=== PATIENT | female | born 1965 | race Caucasian/White ===

== ENCOUNTER → 2016-05-02 | Outpatient (CLI) | payer BC ==
[~2016-05-02] MED LIST: 'PARAFON FORTE500 M1 PO; ALBUTEROL0.09 MG/A2 IH; ALEVE220 MG PO; B12100 MCG PO; CLARITIN10 MG PO; DELTASONE20 MG PO; HYDROCODONE BIT1 T11 PO; MUCINEX600 MG PO; NAPROSYN500 MG PO; PRINIVIL2.5 MG PO; SEPTRA DS 800 M1 TAB PO; ZITHROMAX250 MG PO; ZOLOFT25 MG PO
== END | disposition home or self-care (01) ==
LOC: RAD 13:30
DX: M19.011 Primary osteoarthritis, right shoulder (principal); M25.511 Pain in right shoulder

== ENCOUNTER → 2016-08-05 | Outpatient (CLI) | payer BC | END | disposition home or self-care (01) | LOC: CT 16:00 | DX: S16.1XXA Strain of muscle, fascia and tendon at neck level, initial encounter (principal); M51.36 Other intervertebral disc degeneration, lumbar region; M48.06 Spinal stenosis, lumbar region; M25.78 Osteophyte, vertebrae; M19.90 Unspecified osteoarthritis, unspecified site; Z90.710 Acquired absence of both cervix and uterus; Z96.653 Presence of artificial knee joint, bilateral; X58.XXXA Exposure to other specified factors, initial encounter; Y93.89 Activity, other specified; Y92.89 Other specified places as the place of occurrence of the external cause; Y99.8 Other external cause status ==

== ENCOUNTER 2016-08-13 10:26 | Emergency (ER) | payer BC ==
[~2016-08-13] VITALS: Ht 154.9 cm; Wt 136.1 kg
[2016-08-13] MEDS ORDERED: CYCLOBENZAPRINE5 M3 PO (10:37)
[2016-08-13] MEDS ORDERED: MEDROL DOSEPAK4 MG PO (11:22)
[2016-08-13] MEDS ORDERED: NORCO 5-325 TA1 EACH PO (11:22)
[2016-08-13] MEDS ORDERED: CYCLOBENZAPRINE10 MG PO (12:07)
== END 2016-08-13 12:00 | disposition home or self-care (01) ==
LOC: ED 10:26
DX: M54.30 Sciatica, unspecified side (principal); F17.200 Nicotine dependence, unspecified, uncomplicated; Z88.8 Allergy status to other drugs, medicaments and biological substances; Z79.899 Other long term (current) drug therapy

== ENCOUNTER → 2016-11-18 | Outpatient (CLI) | payer BC ==
[~2016-11-18] MED LIST changes: +CYCLOBENZAPRINE10 MG PO; +CYCLOBENZAPRINE5 M3 PO; +MEDROL DOSEPAK4 MG PO; +NORCO 5-325 TA1 EACH PO
== END | disposition home or self-care (01) ==
LOC: MRI 14:00
DX: M48.06 Spinal stenosis, lumbar region (principal); M47.896 Other spondylosis, lumbar region; M51.26 Other intervertebral disc displacement, lumbar region; M50.222 Other cervical disc displacement at C5-C6 level; M50.221 Other cervical disc displacement at C4-C5 level; M48.02 Spinal stenosis, cervical region; M53.82 Other specified dorsopathies, cervical region; M47.892 Other spondylosis, cervical region

== ENCOUNTER → 2016-11-30 | Outpatient (CLI) | payer BC ==
[2016-11-30 10:33] LABS: EST GLOM FILT AFRICAN AMERICAN > 60 ml/min
== END | disposition home or self-care (01) ==
LOC: CT 10:00 → LAB 10:06
PROVIDERS: Internal Medicine
DX: M48.06 Spinal stenosis, lumbar region (principal); M48.02 Spinal stenosis, cervical region; M12.9 Arthropathy, unspecified; M50.30 Other cervical disc degeneration, unspecified cervical region

== ENCOUNTER 2017-04-30 21:49 | Emergency (ER) | payer BC ==
[~2017-04-30] VITALS: Ht 157.4 cm; Wt 127.0 kg
== END 2017-05-01 00:23 | disposition home or self-care (01) ==
LOC: ED 21:49
DX: R51 Headache (principal); F17.200 Nicotine dependence, unspecified, uncomplicated; Z90.710 Acquired absence of both cervix and uterus; Z96.653 Presence of artificial knee joint, bilateral; Z79.899 Other long term (current) drug therapy; Z88.8 Allergy status to other drugs, medicaments and biological substances

== ENCOUNTER → 2021-10-01 | Outpatient (CLI) | payer BC ==
[~2021-10-01] MED LIST changes: +CEPHALEXIN500 M1 PO; +CIPRO500 MG PO
== END | disposition home or self-care (01) ==
LOC: CARD 12:23
PROVIDERS: ATTEND Physician Assistant
DX: I08.3 Combined rheumatic disorders of mitral, aortic and tricuspid valves (principal)

== ENCOUNTER 2022-03-16 15:07 | Inpatient (IN) | payer BC ==
[~2022-03-16] VITALS: Wt 136.1 kg
[2022-03-16 11:45] VITALS: BP 110/64; BP 124/63
[2022-03-16 15:19] VITALS: BP 170/80
[2022-03-16] MEDS ORDERED: CELECOXIB200 M1 PO (15:43)
[2022-03-16] MEDS ORDERED: CONTRAVE ER 8-1 EACH PO (15:43)
[2022-03-16] MEDS ORDERED: LOSARTAN-HCTZ1 EACH PO (15:44)
[2022-03-16] MEDS ORDERED: MELOXICAM15 MG PO (15:44)
[2022-03-16 16:43] LABS: BILIRUBIN Negative (Negative); BLOOD Negative (Negative); CLARITY Clear (Clear); COLOR Yellow (Yellow); GLUCOSE Negative (Negative); KETONE Negative (Negative); LEUKO ESTERASE Negative (Negative); NITRITE Negative (Negative); SPECIFIC GRAVITY 1.015 (1.001-1.030)
[2022-03-16 17:17] LABS: BASO # 0.1 10*3/uL (0.0-0.1); BASO % 0.8 % (0.0-1.0); EOS % 0.6 % (1.0-4.0); HEMATOCRIT 43.6 % (37.0-47.0); LYMPH # 0.8 10*3/uL (1.3-4.4); LYMPH % 10.7 % (27.0-41.0); MEAN CELL VOLUME 94.8 fl (81.0-99.0); MEAN CORPUSCULAR HGB 30.2 pg (27.0-31.0); MEAN CORPUSCULAR HGB CONC 31.9 g/dl (33.0-37.0); MEAN PLATELET VOLUME 10.7 fl (9.6-12.3); MONO # 0.7 10*3/uL (0.1-1.0); MONO % 10.2 % (3.0-9.0); NEUT # 5.5 10*3/uL (2.3-7.9); NEUT % 77.4 % (47.0-73.0); PLATELET COUNT AUTOMATED 220 10*3/uL (130-400); RED CELL DISTRI WIDTH 15.5 % (0-14.5); WHITE BLOOD COUNT 7.1 10*3/uL (4.8-10.8)
[2022-03-16 17:24] VITALS: BP 144/80
[2022-03-16 17:34] LABS: ALKALINE PHOSPHATASE 96 U/L (46-116); BUN 5 mg/dl (9-23); CHLORIDE 98 mmol/L (98-107); CREATININE 0.75 mg/dL (0.55-1.02); LIPASE 22 U/L (12-53); POTASSIUM 3.3 mmol/L (3.4-5.1); SGPT/ALT 25 U/L (10-49); SODIUM 134 mmol/L (136-145); TOTAL PROTEIN 6.7 gm/dL (6.0-8.0)
[2022-03-16 17:36] LABS: ACT PARTIAL THROMBO TIME 32.1 SECONDS (20.0-32.1); INTERNATIONAL NORM RATIO 1.1 (2.0-3.5)
[2022-03-16 23:02] VITALS: BP 120/66
[2022-03-17] VITALS: BP 114/51
[2022-03-17 00:08] VITALS: BP 104/70
[2022-03-17 04:54] VITALS: BP 110/64
[2022-03-17 05:36] LABS: ALKALINE PHOSPHATASE 96 U/L (46-116); BUN 9 mg/dl (9-23); CHLORIDE 100 mmol/L (98-107); CHOLESTEROL 142 mg/dL (<200); CREATININE 0.79 mg/dL (0.55-1.02); LDL CHOLESTEROL 105 mg/dL (9-159); POTASSIUM 3.9 mmol/L (3.4-5.1); SGPT/ALT 27 U/L (10-49); SODIUM 136 mmol/L (136-145); TOTAL PROTEIN 6.9 gm/dL (6.0-8.0); TRIGLYCERIDES 52 mg/dl (<150)
[2022-03-17 05:37] LABS: FREE T4 1.06 ng/dl (0.89-1.76); THYROID STIM HORMONE (HS) 0.589 uIU/ml (0.550-4.780)
[2022-03-17 06:07] LABS: BASO % 0.3 % (0.0-1.0); HEMATOCRIT 45.1 % (37.0-47.0); LYMPH # 0.7 10*3/uL (1.3-4.4); MEAN CELL VOLUME 96.6 fl (81.0-99.0); MEAN CORPUSCULAR HGB 30.6 pg (27.0-31.0); MEAN CORPUSCULAR HGB CONC 31.7 g/dl (33.0-37.0); MEAN PLATELET VOLUME 11.1 fl (9.6-12.3); MONO # 0.4 10*3/uL (0.1-1.0); MONO % 5.1 % (3.0-9.0); NEUT # 7.4 10*3/uL (2.3-7.9); NEUT % 86.1 % (47.0-73.0); PLATELET COUNT AUTOMATED 255 10*3/uL (130-400); RED BLOOD COUNT 4.67 10*6/uL (4.10-5.10); RED CELL DISTRI WIDTH 15.5 % (0-14.5); WHITE BLOOD COUNT 8.6 10*3/uL (4.8-10.8)
[2022-03-17 12:00] VITALS: BP 110/64
[2022-03-17 16:00] VITALS: BP 111/72
[2022-03-17 20:00] VITALS: BP 106/59
[2022-03-18] VITALS: BP 139/61
[2022-03-18 06:36] LABS: BASO % 0.1 % (0.0-1.0); HEMATOCRIT 44.2 % (37.0-47.0); LYMPH # 1.7 10*3/uL (1.3-4.4); LYMPH % 23.7 % (27.0-41.0); MEAN CELL VOLUME 97.8 fl (81.0-99.0); MEAN CORPUSCULAR HGB 30.3 pg (27.0-31.0); MEAN PLATELET VOLUME 11.1 fl (9.6-12.3); MONO # 0.8 10*3/uL (0.1-1.0); MONO % 10.8 % (3.0-9.0); NEUT # 4.8 10*3/uL (2.3-7.9); NEUT % 65.1 % (47.0-73.0); PLATELET COUNT AUTOMATED 224 10*3/uL (130-400); RED BLOOD COUNT 4.52 10*6/uL (4.10-5.10); RED CELL DISTRI WIDTH 15.5 % (0-14.5); WHITE BLOOD COUNT 7.3 10*3/uL (4.8-10.8)
[2022-03-18 06:41] LABS: ALKALINE PHOSPHATASE 81 U/L (46-116); BUN 16 mg/dl (9-23); CHLORIDE 101 mmol/L (98-107); POTASSIUM 3.7 mmol/L (3.4-5.1); SGPT/ALT 27 U/L (10-49); SODIUM 140 mmol/L (136-145); TOTAL PROTEIN 6.2 gm/dL (6.0-8.0)
[2022-03-18 08:00] VITALS: BP 132/79
[2022-03-18 12:00] VITALS: BP 110/59
[2022-03-18 16:00] VITALS: BP 116/54
[2022-03-18 20:00] VITALS: BP 112/58
[2022-03-19] VITALS: BP 114/64
[2022-03-19 08:00] VITALS: BP 114/60
[2022-03-19 12:00] VITALS: BP 133/52
[2022-03-19] MEDS ORDERED: DEXAMETHASONE6 MG PO (14:15)
[2022-03-19] MEDS ORDERED: DOXYCYCLINE HY100 M3 PO (14:15)
[2022-03-19] MEDS ORDERED: NATURE'S BLEND F1 MG PO (14:15)
== END 2022-03-19 16:27 | disposition home or self-care (01) | DRG 177 ==
LOC: ED 15:07 → 4E 19:00 → EDHOLD 19:00 → 4E 03-17 11:06
PROVIDERS: Family Medicine; Internal Medicine; ADMIT Emergency Medicine; ATTEND Emergency Medicine
PROC: XW033E5 Introduction of Remdesivir Anti-infective into Peripheral Vein, Percutaneous Approach, New Technology Group 5 (ICD-10-PCS; principal; 2022-03-16)
DX: U07.1 COVID-19 (principal); J12.82 Pneumonia due to coronavirus disease 2019; J96.01 Acute respiratory failure with hypoxia; E87.1 Hypo-osmolality and hyponatremia; Z68.43 Body mass index [BMI] 50.0-59.9, adult; I35.0 Nonrheumatic aortic (valve) stenosis; E53.8 Deficiency of other specified B group vitamins; Z96.653 Presence of artificial knee joint, bilateral; E66.01 Morbid (severe) obesity due to excess calories; E87.6 Hypokalemia; R73.9 Hyperglycemia, unspecified; Z88.8 Allergy status to other drugs, medicaments and biological substances; Z83.3 Family history of diabetes mellitus; Z82.49 Family history of ischemic heart disease and other diseases of the circulatory system; Z90.710 Acquired absence of both cervix and uterus; Z98.49 Cataract extraction status, unspecified eye; Z84.89 Family history of other specified conditions; I11.0 Hypertensive heart disease with heart failure; I50.9 Heart failure, unspecified

== ENCOUNTER → 2022-04-02 | Outpatient (CLI) | payer BC ==
[~2022-04-02] MED LIST changes: +CELECOXIB200 M1 PO; +CONTRAVE ER 8-1 EACH PO; +DEXAMETHASONE6 MG PO; +DOXYCYCLINE HY100 M3 PO; +LOSARTAN-HCTZ1 EACH PO; +MELOXICAM15 MG PO; +NATURE'S BLEND F1 MG PO
== END | disposition home or self-care (01) ==
LOC: LAB 10:52
PROVIDERS: ATTEND Internal Medicine
DX: I50.9 Heart failure, unspecified (principal)

== ENCOUNTER → 2023-05-12 | Outpatient (CLI) | payer BC | END | disposition home or self-care (01) | LOC: CT 05-10 16:00 | PROVIDERS: ATTEND Physician Assistant | DX: J43.9 Emphysema, unspecified (principal); I25.10 Atherosclerotic heart disease of native coronary artery without angina pectoris; K76.0 Fatty (change of) liver, not elsewhere classified; F17.210 Nicotine dependence, cigarettes, uncomplicated; K44.9 Diaphragmatic hernia without obstruction or gangrene ==

== ENCOUNTER → 2024-10-11 | Outpatient (CLI) | payer BC | END | disposition home or self-care (01) | LOC: CT 15:52 | PROVIDERS: ATTEND Physician Assistant | DX: Z12.2 Encounter for screening for malignant neoplasm of respiratory organs (principal); J43.2 Centrilobular emphysema; R91.1 Solitary pulmonary nodule; I25.10 Atherosclerotic heart disease of native coronary artery without angina pectoris; F17.210 Nicotine dependence, cigarettes, uncomplicated ==

== ENCOUNTER → 2024-11-21 | Outpatient (CLI) | payer BC | END | disposition home or self-care (01) | LOC: CARD 03:19 | PROVIDERS: ATTEND Internal Medicine Cardiovascular Disease | DX: I35.0 Nonrheumatic aortic (valve) stenosis (principal) ==

== ENCOUNTER → 2024-12-20 | Outpatient (CLI) | payer BC ==
[2024-12-20 17:04] LABS: BASO # 0.1 10*3/uL (0.0-0.1); BASO % 0.6 % (0.0-1.0); EOS # 0.3 10*3/uL (0.0-0.4); EOS % 3.4 % (1.0-4.0); MEAN CELL VOLUME 94.5 fl (81.0-99.0); MEAN CORPUSCULAR HGB 30.6 pg (27.0-31.0); MEAN PLATELET VOLUME 10.5 fl (9.6-12.3); MONO # 0.6 10*3/uL (0.1-1.0); MONO % 6.8 % (3.0-9.0); NEUT # 5.9 10*3/uL (2.3-7.9); NEUT % 62.6 % (47.0-73.0); NUCLEATED RED BLOOD CELL 0.0 % (0.0-0.0); NUCLEATED RED BLOOD CELL 0.0 10*3/uL (0.0-0.0); PLATELET COUNT AUTOMATED 266 10*3/uL (130-400); RED CELL DISTRI WIDTH 14.3 % (0-14.5)
[2024-12-20 17:15] LABS: ACT PARTIAL THROMBO TIME 29.3 SECONDS (20.0-32.1)
[2024-12-20 17:22] LABS: BUN 15 mg/dl (9-23)
== END ==
LOC: LAB 16:30
PROVIDERS: ATTEND Internal Medicine Cardiovascular Disease
DX: Z01.812 Encounter for preprocedural laboratory examination (principal); I35.0 Nonrheumatic aortic (valve) stenosis

== ENCOUNTER → 2025-01-23 | Outpatient (CLI) | payer BC | END | disposition home or self-care (01) | LOC: US 11:00 | PROVIDERS: ATTEND Obstetrics & Gynecology | DX: N83.209 Unspecified ovarian cyst, unspecified side (principal) ==

== ENCOUNTER → 2025-02-19 | Outpatient (CLI) | payer BC ==
[2025-02-19 17:18] LABS: PLATELET COUNT AUTOMATED 262.0 10*3/uL (130-400)
[2025-02-19 17:36] LABS: BUN 15 mg/dl (9-23)
== END | disposition home or self-care (01) ==
LOC: LAB 16:54
PROVIDERS: ATTEND Internal Medicine Cardiovascular Disease
DX: Z01.812 Encounter for preprocedural laboratory examination (principal); I35.0 Nonrheumatic aortic (valve) stenosis; R06.09 Other forms of dyspnea

== ENCOUNTER → 2025-03-05 | Outpatient (CLI) | payer BC ==
[~2025-03-05] MED LIST changes: +IOHEXOL 300 MG/ML 100 ML VIAL IV ONE; +IOHEXOL 300 MG/ML 100 ML VIAL ONE
== END | disposition home or self-care (01) ==
LOC: CT 02-23 15:00
PROVIDERS: ATTEND Physician Assistant
DX: R91.1 Solitary pulmonary nodule (principal); K76.0 Fatty (change of) liver, not elsewhere classified; K44.9 Diaphragmatic hernia without obstruction or gangrene